=== PATIENT | male | born 1950 | race Caucasian/White ===

== ENCOUNTER 2016-06-20 13:37 | Inpatient (IN) | payer OTHER, BC ==
[~2016-06-20] VITALS: Ht 180.3 cm; Wt 158.4 kg
[~2016-06-20 13:37] MED LIST: BENADRYL25 MG PO; BUMEX2 MG PO; Bumex PO; COUMADIN10 MG PO; Calcium Carbonate,Ca PO; Claritin,Alavart PO; Coumadin dosing per PO; Duragesic TD; FLOMAX0.4 MG PO; FOSINOPRIL SODI10 MG PO; Feosol PO; LEVOTHYROXINE125 MCG PO; LEXAPRO10 MG PO; LOPRESSOR25 MG PO; Levothroid,Synthroid PO; Lipitor PO; METHOCARBAMOL500 MG PO; MICRO-K10 ME2 PO; Micro-K,K-Tab,K-Dur, PO; Monopril PO; NASONEX17 GM NS; NEURONTIN600 MG PO; Neurontin PO; PERCOCET 7.51 TABLET PO; POLYSPORIN LEFT EYE; Percocet 5/325,Endoc PO; Proventil,Ventolin H IH; Senokot S,Pericolace PO; THERAGRAN1 TABLET PO
[2016-06-20 14:37] LABS: POINT-OF-CARE METER ID UU13113778
[2016-06-20 15:44] LABS: EOSINOPHIL (%) 4.3 % (0-5); EOSINOPHIL COUNT 0.3 K/uL (0-0.3); HEMATOCRIT 35.7 % (38.0-50.0); IMMATURE GRANULOCYTE (%) 0.6 % (0.0-0.7); IMMATURE GRANULOCYTE COUNT 0.4 K/uL; LYMPHOCYTE COUNT 1.4 K/uL (1.0-2.8); MCH 29.8 PG (29.0-34.0); MCHC 32.8 G/DL (30.0-36.0); MCV 91.1 FL (86-99); MEAN PLAT.VOLUME 9.6 uM^3 (9.0-12.4); MONOCYTE (%) 10.3 % (3-12); MONOCYTE COUNT 0.7 K/uL (0-0.8); NEUTROPHIL (%) 64.6 % (45-76); NEUTROPHIL COUNT 4.5 K/uL (1.8-6.4); PLATELET COUNT 265 K/uL (156-360); RBC DIS.WIDTH-CV 14.9 % (11.8-14.6); RBC DIS.WIDTH-SD 48.8 % (39-53); RED BLOOD COUNT 3.92 M/uL (4.00-5.50)
[2016-06-20 15:52] LABS: CHLORIDE 101 mEq/L (99-109); POTASSIUM 3.8 mEq/L (3.7-5.4); SODIUM 138 mEq/L (136-147)
[2016-06-20 15:53] LABS: GLUCOSE 120 mg/dL (70-99)
[2016-06-20 15:55] LABS: ANION GAP 12 MEQ/L (2-14)
[2016-06-20 15:57] LABS: GFR ESTIMATE (CALCULATED) > 59 mL/min/
[2016-06-20 15:58] LABS: UREA NITROGEN (BUN) 13 mg/dL (9-23)
[2016-06-20] MEDS ORDERED: WARFARIN SODIUM5 MG PO ×2 (17:55→17:57)
[2016-06-20] MEDS ORDERED: LIPITOR20 MG PO (18:03)
[2016-06-20] MEDS ORDERED: LEXAPRO20 MG PO (18:03)
[2016-06-20] MEDS ORDERED: TRAMADOL HCL50 MG PO (18:04)
[2016-06-20] MEDS ORDERED: CYCLOBENZAPRINE10 MG PO (18:04)
[2016-06-20] MEDS ORDERED: DAILY VALUE1 EACH PO (18:05)
[2016-06-20] MEDS ORDERED: PLAQUENIL200 MG PO (18:05)
[2016-06-20] MEDS ORDERED: CIPRO500 MG PO (18:06)
[2016-06-20] MEDS ORDERED: SILVADENE,SSD,T50 GM TP (18:07)
[2016-06-20] MEDS ORDERED: CALCIUM 600 MG1 EACH PO (18:08)
[2016-06-20] MEDS ORDERED: CALCIUM 600 +1 EA16 PO (18:12)
[2016-06-20 20:24] VITALS: BP 131/72
[2016-06-20 20:34] VITALS: BP 131/72
[2016-06-20 20:50] LABS: POINT-OF-CARE METER ID UU13113717
[2016-06-20 23:24] LABS: INTER. NORMALIZED RATIO 2.4; PROTHROMBIN TIME 24.8 (9.2-11.2)
[2016-06-21 05:44] LABS: POINT-OF-CARE METER ID UU13113717
[2016-06-21 06:56] LABS: INTER. NORMALIZED RATIO 2.3; PROTHROMBIN TIME 23.5 (9.2-11.2)
[2016-06-21 08:31] VITALS: BP 149/86
[2016-06-21 11:41] LABS: POINT-OF-CARE METER ID UU13113717
[2016-06-21 16:28] LABS: POINT-OF-CARE METER ID UU13113717
[2016-06-21 17:55] VITALS: BP 125/74
[2016-06-22] VITALS: BP 114/71
[2016-06-22 06:48] LABS: INTER. NORMALIZED RATIO 2.2
[2016-06-22 07:01] LABS: HEMATOCRIT 32.5 % (38.0-50.0); MCH 29.4 PG (29.0-34.0); MCV 91.8 FL (86-99); MEAN PLAT.VOLUME 9.8 uM^3 (9.0-12.4); PLATELET COUNT 220 K/uL (156-360); RBC DIS.WIDTH-CV 15.1 % (11.8-14.6); RBC DIS.WIDTH-SD 51.6 % (39-53); RED BLOOD COUNT 3.54 M/uL (4.00-5.50)
[2016-06-22 07:02] LABS: WHITE BLOOD COUNT 4.7 K/uL (4.1-10.2)
[2016-06-22 07:13] LABS: ANION GAP 8 MEQ/L (2-14); CHLORIDE 105 MEQ/L (99-109); GFR ESTIMATE (CALCULATED) > 59 mL/min/; GLUCOSE 86 mg/dL (70-99); MAGNESIUM 1.7 mg/dl (1.3-2.7); POTASSIUM 3.9 MEQ/L (3.7-5.4); SAMPLE HEMOLYSIS CHECK 0; SAMPLE ICTERIC CHECK 0; SAMPLE LIPEMIA CHECK 0; SODIUM 140 MEQ/L (136-147); UREA NITROGEN (BUN) 11 mg/dL (9-23)
[2016-06-22 08:11] VITALS: BP 123/80
[2016-06-22 16:04] VITALS: BP 149/78
[2016-06-22 16:24] LABS: POINT-OF-CARE METER ID UU13113725
[2016-06-22 21:10] LABS: POINT-OF-CARE METER ID UU13113717
[2016-06-22 22:43] VITALS: BP 93/55
[2016-06-23 06:10] LABS: POINT-OF-CARE METER ID UU13113717
[2016-06-23 07:16] LABS: INTER. NORMALIZED RATIO 2.3; PROTHROMBIN TIME 23.5 (9.2-11.2)
[2016-06-23 08:20] VITALS: BP 141/64
[2016-06-23 11:24] LABS: POINT-OF-CARE METER ID UU13113717
[2016-06-23 16:33] LABS: POINT-OF-CARE METER ID UU13113725
[2016-06-23 16:42] VITALS: BP 116/70
[2016-06-23 20:56] LABS: POINT-OF-CARE METER ID UU13113725
[2016-06-23 22:53] VITALS: BP 152/70
[2016-06-24 06:00] LABS: POINT-OF-CARE METER ID UU13113725
[2016-06-24 07:37] LABS: INTER. NORMALIZED RATIO 2.4; PROTHROMBIN TIME 25.3 (9.2-11.2)
[2016-06-24 07:57] LABS: POINT-OF-CARE METER ID UU13113725
[2016-06-24 08:00] VITALS: BP 132/97
[2016-06-24 11:59] LABS: POINT-OF-CARE METER ID UU13113725
[2016-06-24 15:58] VITALS: BP 88/50
[2016-06-24 15:58] LABS: POINT-OF-CARE METER ID UU13113725
[2016-06-24 16:44] VITALS: BP 96/62
[2016-06-25] VITALS: BP 144/89
[2016-06-25 06:21] LABS: POINT-OF-CARE METER ID UU13113717
[2016-06-25 06:39] LABS: INTER. NORMALIZED RATIO 2.4; PROTHROMBIN TIME 24.9 (9.2-11.2)
[2016-06-25 08:16] VITALS: BP 135/80
[2016-06-25 10:32] LABS: POINT-OF-CARE METER ID UU13113717
[2016-06-25 11:05] LABS: POINT-OF-CARE METER ID UU13113717
[2016-06-25] MEDS ORDERED: BACTRIM,SEPT1 TABLET PO (11:37)
[2016-06-25] MEDS ORDERED: CEPHALEXIN500 MG PO (11:41)
== END 2016-06-25 13:41 | disposition home health service (06) | DRG 638 ==
LOC: EME 13:37 → EDOF 17:49 → 5EAST 17:49
PROVIDERS: Emergency Medicine; Internal Medicine
DX: E11.69 Type 2 diabetes mellitus with other specified complication (principal); L03.115 Cellulitis of right lower limb; E11.43 Type 2 diabetes mellitus with diabetic autonomic (poly)neuropathy; E11.621 Type 2 diabetes mellitus with foot ulcer; L97.519 Non-pressure chronic ulcer of other part of right foot with unspecified severity; E11.51 Type 2 diabetes mellitus with diabetic peripheral angiopathy without gangrene; E66.01 Morbid (severe) obesity due to excess calories; I48.2 Chronic atrial fibrillation; Z79.01 Long term (current) use of anticoagulants; Z68.42 Body mass index [BMI] 45.0-49.9, adult; I10 Essential (primary) hypertension; E78.5 Hyperlipidemia, unspecified; F33.40 Major depressive disorder, recurrent, in remission, unspecified; E03.9 Hypothyroidism, unspecified; D53.9 Nutritional anemia, unspecified; Z98.84 Bariatric surgery status; E11.610 Type 2 diabetes mellitus with diabetic neuropathic arthropathy; Z89.421 Acquired absence of other right toe(s); N40.0 Benign prostatic hyperplasia without lower urinary tract symptoms
CPT/HCPCS: 73590; 73630; 73720; 80048; 80202; 82948; 83605; 83735; 85025; 85027; 85610; 87040; 93971; 99281; 99284; J0696; J1815; J3370; J7030; J7040; J7050

== ENCOUNTER 2016-10-13 14:14 | Emergency (ER) | payer OTHER, BC ==
[~2016-10-13] VITALS: Ht 180.3 cm; Wt 151.8 kg
[~2016-10-13 14:14] MED LIST changes: +BACTRIM,SEPT1 TABLET PO; +CALCIUM 600 +1 EA16 PO; +CALCIUM 600 MG1 EACH PO; +CEPHALEXIN500 MG PO; +CIPRO500 MG PO; +CYCLOBENZAPRINE10 MG PO; +DAILY VALUE1 EACH PO; +LEXAPRO20 MG PO; +LIPITOR20 MG PO; +PLAQUENIL200 MG PO; +SILVADENE,SSD,T50 GM TP; +TRAMADOL HCL50 MG PO; +WARFARIN SODIUM10 MG PO; +WARFARIN SODIUM5 MG PO
[2016-10-13 15:02] LABS: EOSINOPHIL COUNT 0.4 K/uL (0-0.3); HEMATOCRIT 33.9 % (38.0-50.0); IMMATURE GRANULOCYTE (%) 0.4 % (0.0-0.7); LYMPHOCYTE COUNT 1.3 K/uL (1.0-2.8); MCH 27.8 PG (29.0-34.0); MCHC 31.6 G/DL (30.0-36.0); MCV 88.1 FL (86-99); MEAN PLAT.VOLUME 9.4 uM^3 (9.0-12.4); MONOCYTE (%) 14.3 % (3-12); MONOCYTE COUNT 0.8 K/uL (0-0.8); NEUTROPHIL (%) 54.3 % (45-76); PLATELET COUNT 312 K/uL (156-360); RBC DIS.WIDTH-CV 15.1 % (11.8-14.6); RBC DIS.WIDTH-SD 48.6 % (39-53); RED BLOOD COUNT 3.85 M/uL (4.00-5.50); WHITE BLOOD COUNT 5.5 K/uL (4.1-10.2)
[2016-10-13 15:16] LABS: CHLORIDE 104 mEq/L (99-109); POTASSIUM 4.5 mEq/L (3.7-5.4); SODIUM 138 mEq/L (136-147)
[2016-10-13 15:17] LABS: GLUCOSE 85 mg/dL (70-99)
[2016-10-13 15:19] LABS: ANION GAP 9 MEQ/L (2-14)
[2016-10-13 15:21] LABS: GFR ESTIMATE (CALCULATED) > 59 mL/min/
[2016-10-13 15:22] LABS: UREA NITROGEN (BUN) 8 mg/dL (9-23)
[2016-10-13 15:24] LABS: CREATINE KINASE 295 IU/L (1-294); TOTAL CK 295 IU/L (1-294)
[2016-10-13 15:31] LABS: CK-MB 2.3 ng/mL (0.0-4.9)
[2016-10-13 15:36] LABS: INTER. NORMALIZED RATIO 2.4; PROTHROMBIN TIME 24.6 (9.2-11.2)
[2016-10-13 16:23] LABS: TROP-I INTERPRETATION NEGATIVE; TROPONIN-I < 0.01 ng/mL (0.0-0.30)
[2016-10-13 17:22] VITALS: BP 112/80
[2016-10-19] MEDS ORDERED: PREDNISONE10 MG PO (11:00)
== END 2016-10-13 17:50 | disposition home or self-care (01) ==
LOC: EME 14:14
DX: R53.1 Weakness (principal); M86.9 Osteomyelitis, unspecified; I48.2 Chronic atrial fibrillation; E11.9 Type 2 diabetes mellitus without complications; Z79.01 Long term (current) use of anticoagulants; I10 Essential (primary) hypertension; Z88.0 Allergy status to penicillin; Z88.8 Allergy status to other drugs, medicaments and biological substances; Z87.891 Personal history of nicotine dependence
CPT/HCPCS: 80048; 82550; 82553; 83605; 84484; 85025; 85610; 85730; 93005; 99281; 99285

== ENCOUNTER → 2016-10-14 | Outpatient (CLI) | payer OTHER, BC ==
[~2016-10-14] MED LIST changes: +PREDNISONE10 MG PO
== END | disposition home or self-care (01) ==
LOC: PICC 10:30
DX: S91.301D Unspecified open wound, right foot, subsequent encounter (principal)
CPT/HCPCS: 71010; 76937

== ENCOUNTER 2017-08-31 15:34 | Inpatient (IN) | payer OTHER, BC ==
[~2017-08-31] VITALS: Ht 180.3 cm; Wt 148.0 kg
[~2017-08-31 15:34] MED LIST changes: -FOSINOPRIL SODI10 MG PO; +MONOPRIL10 MG PO
[2017-08-31 16:11] LABS: BASOPHIL (%) 0.1 % (0-1); EOSINOPHIL (%) 0.1 % (0-5); HEMATOCRIT 32.3 % (38.0-50.0); HEMOGLOBIN 9.9 G/DL (12.5-16.6); IMMATURE GRANULOCYTE (%) 0.8 % (0.0-0.7); LYMPHOCYTE (%) 6.8 % (15-42); MCH 26.5 PG (29.0-34.0); MCHC 30.7 G/DL (30.0-36.0); MCV 86.6 FL (86-99); MONOCYTE COUNT 0.9 K/uL (0-0.8); NEUTROPHIL (%) 86.2 % (45-76); NEUTROPHIL COUNT 12.6 K/uL (1.8-6.4); PLATELET COUNT 323 K/uL (156-360); RBC DIS.WIDTH-CV 18.8 % (11.8-14.6); RED BLOOD COUNT 3.73 M/uL (4.00-5.50); WHITE BLOOD COUNT 14.6 K/uL (4.1-10.2)
[2017-08-31 16:25] LABS: CHLORIDE 104 mEq/L (99-109); POTASSIUM 4.3 mEq/L (3.7-5.4); SODIUM 136 mEq/L (136-147)
[2017-08-31 16:26] LABS: GLUCOSE 102 mg/dL (70-99)
[2017-08-31 16:30] LABS: GFR ESTIMATE (CALCULATED) > 59 mL/min/ (58.99-99999)
[2017-08-31 16:31] LABS: UREA NITROGEN (BUN) 18 mg/dL (9-23)
[2017-08-31 18:14] LABS: PTT 82.2 SEC (25-37)
[2017-08-31 18:22] LABS: INTER. NORMALIZED RATIO 12.7
[2017-08-31] MEDS ORDERED: NEURONTIN600 MG PO (19:46)
[2017-08-31] MEDS ORDERED: UNITHROID125 MCG PO (19:46)
[2017-08-31] MEDS ORDERED: POTASSIUM CHLO10 ME4 PO (19:47)
[2017-08-31] MEDS ORDERED: JANTOVEN5 MG PO (19:48)
[2017-08-31] MEDS ORDERED: METOPROLOL TART25 MG PO (19:49)
[2017-08-31] MEDS ORDERED: BUMETANIDE2 MG PO (19:49)
[2017-08-31 19:51] LABS: C-REACTIVE PROTEIN 126.7 MG/L (0-10)
[2017-08-31] MEDS ORDERED: OXYCODONE HCL20 M1 PO (20:10)
[2017-08-31 21:55] VITALS: BP 131/75
[2017-08-31 23:27] VITALS: BP 110/62
[2017-09-01] VITALS (7 sets, daily range): BP systolic 79–124; BP diastolic 57–82
[2017-09-01 05:15] LABS: HEMATOCRIT 26.9 % (38.0-50.0); HEMOGLOBIN 8.2 G/DL (12.5-16.6); MCH 26.5 PG (29.0-34.0); MCHC 30.5 G/DL (30.0-36.0); MCV 87.1 FL (86-99); PLATELET COUNT 245 K/uL (156-360); RBC DIS.WIDTH-CV 18.9 % (11.8-14.6); RED BLOOD COUNT 3.09 M/uL (4.00-5.50)
[2017-09-01 05:31] LABS: INTER. NORMALIZED RATIO 13.1
[2017-09-01 05:45] LABS: CHLORIDE 106 MEQ/L (99-109); CREATININE 0.9 MG/DL (0.6-1.3); GFR ESTIMATE (CALCULATED) > 59 mL/min/ (58.99-99999); GLUCOSE 85 mg/dL (70-99); POTASSIUM 3.7 MEQ/L (3.7-5.4); SODIUM 138 MEQ/L (136-147); UREA NITROGEN (BUN) 17 mg/dL (9-23)
[2017-09-01 08:05] LABS: ALBUMIN 1.8 G/DL (3.2-4.8)
[2017-09-01 12:47] LABS: HEMOGLOBIN A1c (GLYCOHEMOGLOB) 5.3 % (Below 5.7)
[2017-09-01 16:55] LABS: INTER. NORMALIZED RATIO 10.7
[2017-09-02 00:23] LABS: APPEARANCE SL.HAZY ((CLEAR)); BILIRUBIN NEGATIVE; BLOOD LARGE; COLOR YELLOW ((YELLOW)); GLUCOSE (STRIP) NEGATIVE; KETONES NEGATIVE; LEUKOCYTES NEGATIVE; NITRITE NEGATIVE; PROTEIN (STRIP) NEGATIVE; SPECIFIC GRAVITY 1.015 (1.000-1.030); UROBILINOGEN 0.2 MG/DL (0.2-1.0)
[2017-09-02 00:34] LABS: BACTERIA RARE /HPF; EPITHELIAL CELLS RARE /HPF; MUCUS TRACE /LPF; RED BLOOD CELLS TNTC /HPF (0-5); UCUL ADDED? YES; WHITE BLOOD CELLS 0-5 /HPF (0-5)
[2017-09-02 05:04] LABS: BASOPHIL (%) 0.1 % (0-1); EOSINOPHIL (%) 2.2 % (0-5); EOSINOPHIL COUNT 0.2 K/uL (0-0.3); HEMATOCRIT 29.4 % (38.0-50.0); IMMATURE GRANULOCYTE (%) 0.6 % (0.0-0.7); LYMPHOCYTE (%) 17.5 % (15-42); LYMPHOCYTE COUNT 1.7 K/uL (1.0-2.8); MCH 26.9 PG (29.0-34.0); MCHC 30.6 G/DL (30.0-36.0); MCV 87.8 FL (86-99); MONOCYTE COUNT 1.4 K/uL (0-0.8); NEUTROPHIL (%) 65.6 % (45-76); NEUTROPHIL COUNT 6.4 K/uL (1.8-6.4); PLATELET COUNT 256 K/uL (156-360); RED BLOOD COUNT 3.35 M/uL (4.00-5.50); WHITE BLOOD COUNT 9.8 K/uL (4.1-10.2)
[2017-09-02 05:20] LABS: INTER. NORMALIZED RATIO 6.2
[2017-09-02 05:43] LABS: CHLORIDE 104 MEQ/L (99-109); GFR ESTIMATE (CALCULATED) > 59 mL/min/ (58.99-99999); GLUCOSE 104 mg/dL (70-99); MAGNESIUM 1.5 mg/dl (1.3-2.7); POTASSIUM 4.1 MEQ/L (3.7-5.4); SODIUM 136 MEQ/L (136-147); UREA NITROGEN (BUN) 18 mg/dL (9-23)
[2017-09-02 07:36] VITALS: BP 120/70
[2017-09-02 11:50] VITALS: BP 122/76
[2017-09-02 13:18] LABS: C DIFF TOXIN NEGATIVE (NEGATIVE)
[2017-09-02 15:20] VITALS: BP 125/75
[2017-09-03 00:12] VITALS: BP 117/83
[2017-09-03 04:56] LABS: BASOPHIL (%) 0 % (0-1); EOSINOPHIL (%) 2.3 % (0-5); EOSINOPHIL COUNT 0.2 K/uL (0-0.3); HEMATOCRIT 24.2 % (38.0-50.0); HEMOGLOBIN 7.6 G/DL (12.5-16.6); IMMATURE GRANULOCYTE (%) 0.5 % (0.0-0.7); LYMPHOCYTE COUNT 1.4 K/uL (1.0-2.8); MCH 27.2 PG (29.0-34.0); MCHC 31.4 G/DL (30.0-36.0); MCV 86.7 FL (86-99); MONOCYTE (%) 13.4 % (3-12); MONOCYTE COUNT 1.4 K/uL (0-0.8); NEUTROPHIL (%) 70.8 % (45-76); NEUTROPHIL COUNT 7.4 K/uL (1.8-6.4); PLATELET COUNT 232 K/uL (156-360); RBC DIS.WIDTH-CV 18.6 % (11.8-14.6); RBC DIS.WIDTH-SD 59.2 % (39-53); RED BLOOD COUNT 2.79 M/uL (4.00-5.50); WHITE BLOOD COUNT 10.5 K/uL (4.1-10.2)
[2017-09-03 06:00] LABS: CHLORIDE 105 MEQ/L (99-109); CREATININE 0.9 MG/DL (0.6-1.3); GFR ESTIMATE (CALCULATED) > 59 mL/min/ (58.99-99999); GLUCOSE 85 mg/dL (70-99); POTASSIUM 3.7 MEQ/L (3.7-5.4); SODIUM 135 MEQ/L (136-147); UREA NITROGEN (BUN) 15 mg/dL (9-23)
[2017-09-03 06:19] LABS: INTER. NORMALIZED RATIO 2.2
[2017-09-03 08:22] VITALS: BP 118/63
[2017-09-03 08:30] VITALS: BP 122/64
[2017-09-03 10:55] VITALS: BP 118/64
[2017-09-03 11:31] LABS: HEMOGLOBIN 8.3 G/DL (12.5-16.6); MCV 87.7 FL (86-99)
[2017-09-03 12:58] LABS: IMM.RETIC FRACTION 14.7 % (3-19); RETIC HGB EQUIVALENT 30.2 (28-36)
[2017-09-03 13:22] LABS: FERRITIN 84 NG/ML (22-322)
[2017-09-03 14:06] LABS: IRON 18 MCG/DL (35-150); TRANSFERRIN (TIBC) 104.2 mg/dL (215-380); TRANSFERRIN SATUR. 17 % (20-55)
[2017-09-03 15:55] VITALS: BP 108/79
[2017-09-03 16:27] LABS: LACTATE DEHYDROGENASE 332 IU/L (20-246)
[2017-09-03 17:53] LABS: FOLIC ACID (FOLATE) 22.2 NG/ML (5.0-22.0)
[2017-09-03 23:52] VITALS: BP 92/58
[2017-09-04 06:21] LABS: HEMATOCRIT 27.4 % (38.0-50.0); HEMOGLOBIN 8.3 G/DL (12.5-16.6); MCHC 30.3 G/DL (30.0-36.0); MCV 85.9 FL (86-99); PLATELET COUNT 260 K/uL (156-360); RBC DIS.WIDTH-CV 18.3 % (11.8-14.6); RBC DIS.WIDTH-SD 57.7 % (39-53); RED BLOOD COUNT 3.19 M/uL (4.00-5.50); WHITE BLOOD COUNT 12.6 K/uL (4.1-10.2)
[2017-09-04 06:44] LABS: CHLORIDE 103 MEQ/L (99-109); GFR ESTIMATE (CALCULATED) > 59 mL/min/ (58.99-99999); GLUCOSE 93 mg/dL (70-99); POTASSIUM 3.6 MEQ/L (3.7-5.4); SODIUM 135 MEQ/L (136-147); UREA NITROGEN (BUN) 17 mg/dL (9-23)
[2017-09-04 11:27] LABS: INTER. NORMALIZED RATIO 1.8
[2017-09-04 15:07] VITALS: BP 110/51
[2017-09-04 23:19] VITALS: BP 78/55
[2017-09-05] VITALS (7 sets, daily range): BP systolic 83–140; BP diastolic 58–88
[2017-09-05 06:03] LABS: BASOPHIL (%) 0.2 % (0-1); EOSINOPHIL (%) 2.2 % (0-5); EOSINOPHIL COUNT 0.3 K/uL (0-0.3); HEMATOCRIT 25.8 % (38.0-50.0); HEMOGLOBIN 7.9 G/DL (12.5-16.6); IMMATURE GRANULOCYTE (%) 0.7 % (0.0-0.7); LYMPHOCYTE (%) 13.3 % (15-42); LYMPHOCYTE COUNT 1.5 K/uL (1.0-2.8); MCH 26.1 PG (29.0-34.0); MCHC 30.6 G/DL (30.0-36.0); MCV 85.1 FL (86-99); MONOCYTE (%) 12.2 % (3-12); MONOCYTE COUNT 1.4 K/uL (0-0.8); NEUTROPHIL (%) 71.4 % (45-76); NEUTROPHIL COUNT 8.2 K/uL (1.8-6.4); PLATELET COUNT 278 K/uL (156-360); RBC DIS.WIDTH-CV 18.6 % (11.8-14.6); RBC DIS.WIDTH-SD 57.6 % (39-53); RED BLOOD COUNT 3.03 M/uL (4.00-5.50); WHITE BLOOD COUNT 11.4 K/uL (4.1-10.2)
[2017-09-05 06:10] LABS: INTER. NORMALIZED RATIO 1.7
[2017-09-05 06:27] LABS: CHLORIDE 106 MEQ/L (99-109); CREATININE 0.9 MG/DL (0.6-1.3); GFR ESTIMATE (CALCULATED) > 59 mL/min/ (58.99-99999); GLUCOSE 91 mg/dL (70-99); POTASSIUM 3.6 MEQ/L (3.7-5.4); SODIUM 135 MEQ/L (136-147); UREA NITROGEN (BUN) 17 mg/dL (9-23)
[2017-09-05 08:09] LABS: MAGNESIUM 1.4 mg/dl (1.3-2.7)
[2017-09-05 13:59] LABS: ALBUMIN 1.7 G/DL (3.2-4.8)
[2017-09-06 06:31] LABS: HEMATOCRIT 26.3 % (38.0-50.0); MCH 26.5 PG (29.0-34.0); MCHC 30.4 G/DL (30.0-36.0); MCV 87.1 FL (86-99); PLATELET COUNT 274 K/uL (156-360); RBC DIS.WIDTH-CV 18.7 % (11.8-14.6); RBC DIS.WIDTH-SD 58.8 % (39-53); RED BLOOD COUNT 3.02 M/uL (4.00-5.50); WHITE BLOOD COUNT 8.7 K/uL (4.1-10.2)
[2017-09-06 06:41] LABS: INTER. NORMALIZED RATIO 1.9
[2017-09-06 07:07] LABS: CHLORIDE 109 MEQ/L (99-109); CREATININE 0.9 MG/DL (0.6-1.3); GFR ESTIMATE (CALCULATED) > 59 mL/min/ (58.99-99999); GLUCOSE 84 mg/dL (70-99); SODIUM 139 MEQ/L (136-147); UREA NITROGEN (BUN) 15 mg/dL (9-23)
[2017-09-06 08:01] VITALS: BP 98/63
[2017-09-06 15:39] VITALS: BP 116/76
[2017-09-06 19:55] VITALS: BP 129/69
[2017-09-07] VITALS (7 sets, daily range): BP systolic 89–129; BP diastolic 55–85
[2017-09-07 07:51] LABS: INTER. NORMALIZED RATIO 2.4
[2017-09-07 11:50] LABS: STOOL OCCULT BLD 1ST SPECIMEN NEGATIVE
[2017-09-08 03:28] VITALS: BP 156/80
[2017-09-08 07:44] LABS: BASOPHIL (%) 0.4 % (0-1); EOSINOPHIL (%) 3.8 % (0-5); EOSINOPHIL COUNT 0.3 K/uL (0-0.3); HEMATOCRIT 25.7 % (38.0-50.0); HEMOGLOBIN 8.1 G/DL (12.5-16.6); LYMPHOCYTE (%) 18.8 % (15-42); LYMPHOCYTE COUNT 1.4 K/uL (1.0-2.8); MCH 27.4 PG (29.0-34.0); MCHC 31.5 G/DL (30.0-36.0); MCV 86.8 FL (86-99); MONOCYTE (%) 14.1 % (3-12); NEUTROPHIL (%) 61.9 % (45-76); NEUTROPHIL COUNT 4.6 K/uL (1.8-6.4); PLATELET COUNT 274 K/uL (156-360); RBC DIS.WIDTH-CV 19.1 % (11.8-14.6); RBC DIS.WIDTH-SD 60.2 % (39-53); RED BLOOD COUNT 2.96 M/uL (4.00-5.50); WHITE BLOOD COUNT 7.4 K/uL (4.1-10.2)
[2017-09-08 07:46] LABS: INTER. NORMALIZED RATIO 3.1
[2017-09-08 07:51] VITALS: BP 137/78
[2017-09-08 08:00] LABS: CHLORIDE 108 MEQ/L (99-109); POTASSIUM 3.4 MEQ/L (3.7-5.4); SODIUM 140 MEQ/L (136-147)
[2017-09-08 08:37] LABS: CREATININE 0.8 MG/DL (0.6-1.3); GFR ESTIMATE (CALCULATED) > 59 mL/min/ (58.99-99999); GLUCOSE 80 mg/dL (70-99); UREA NITROGEN (BUN) 12 mg/dL (9-23)
[2017-09-08 12:13] VITALS: BP 130/72
[2017-09-08 16:02] VITALS: BP 86/52
[2017-09-08 19:53] VITALS: BP 107/66
[2017-09-08 23:22] VITALS: BP 91/53
[2017-09-09 04:29] VITALS: BP 87/46
[2017-09-09 05:33] LABS: BASOPHIL (%) 0.4 % (0-1); EOSINOPHIL (%) 3.5 % (0-5); EOSINOPHIL COUNT 0.3 K/uL (0-0.3); HEMATOCRIT 24.7 % (38.0-50.0); HEMOGLOBIN 7.5 G/DL (12.5-16.6); IMMATURE GRANULOCYTE (%) 0.9 % (0.0-0.7); LYMPHOCYTE (%) 21.4 % (15-42); LYMPHOCYTE COUNT 1.6 K/uL (1.0-2.8); MCH 26.6 PG (29.0-34.0); MCHC 30.4 G/DL (30.0-36.0); MCV 87.6 FL (86-99); MONOCYTE (%) 14.7 % (3-12); MONOCYTE COUNT 1.1 K/uL (0-0.8); NEUTROPHIL (%) 59.1 % (45-76); NEUTROPHIL COUNT 4.5 K/uL (1.8-6.4); PLATELET COUNT 285 K/uL (156-360); RBC DIS.WIDTH-CV 19.2 % (11.8-14.6); RBC DIS.WIDTH-SD 60.8 % (39-53); RED BLOOD COUNT 2.82 M/uL (4.00-5.50); WHITE BLOOD COUNT 7.6 K/uL (4.1-10.2)
[2017-09-09 05:42] LABS: INTER. NORMALIZED RATIO 3.4
[2017-09-09 05:59] LABS: CHLORIDE 109 MEQ/L (99-109); CREATININE 0.9 MG/DL (0.6-1.3); GFR ESTIMATE (CALCULATED) > 59 mL/min/ (58.99-99999); GLUCOSE 82 mg/dL (70-99); POTASSIUM 3.5 MEQ/L (3.7-5.4); SODIUM 140 MEQ/L (136-147); UREA NITROGEN (BUN) 11 mg/dL (9-23)
[2017-09-09 07:48] VITALS: BP 110/60
[2017-09-09 09:35] LABS: MAGNESIUM 1.4 mg/dl (1.3-2.7)
[2017-09-09 11:29] VITALS: BP 130/72
[2017-09-09 20:00] VITALS: BP 114/61
[2017-09-09 23:37] VITALS: BP 119/86
[2017-09-10 03:54] VITALS: BP 103/67
[2017-09-10 06:15] LABS: BASOPHIL (%) 0.6 % (0-1); BASOPHIL COUNT 0.1 K/uL (0-0.1); EOSINOPHIL (%) 3.4 % (0-5); EOSINOPHIL COUNT 0.3 K/uL (0-0.3); HEMATOCRIT 26.2 % (38.0-50.0); HEMOGLOBIN 7.9 G/DL (12.5-16.6); IMM.RETIC FRACTION 32.4 % (3-19); LYMPHOCYTE (%) 23.5 % (15-42); LYMPHOCYTE COUNT 1.9 K/uL (1.0-2.8); MCH 26.2 PG (29.0-34.0); MCHC 30.2 G/DL (30.0-36.0); MONOCYTE (%) 13.3 % (3-12); MONOCYTE COUNT 1.1 K/uL (0-0.8); NEUTROPHIL (%) 58.2 % (45-76); NEUTROPHIL COUNT 4.8 K/uL (1.8-6.4); PLATELET COUNT 316 K/uL (156-360); RBC DIS.WIDTH-CV 19.1 % (11.8-14.6); RBC DIS.WIDTH-SD 60.1 % (39-53); RED BLOOD COUNT 3.01 M/uL (4.00-5.50); RETIC HGB EQUIVALENT 28.7 (28-36); WHITE BLOOD COUNT 8.2 K/uL (4.1-10.2)
[2017-09-10 06:20] LABS: ALBUMIN 1.7 G/DL (3.2-4.8); ALKALINE PHOSPHATASE 72 IU/L (3-129); ALT (GPT) 9 IU/L (3-49); AST (GOT) 8 IU/L (2-34); CHLORIDE 107 MEQ/L (99-109); CREATININE 0.9 MG/DL (0.6-1.3); GFR ESTIMATE (CALCULATED) > 59 mL/min/ (58.99-99999); GLUCOSE 83 mg/dL (70-99); POTASSIUM 3.4 MEQ/L (3.7-5.4); RETICULOCYTE COUNT 2.4 % (0.5-1.8); SODIUM 141 MEQ/L (136-147); TOTAL BILIRUBIN 0.2 MG/DL (0.0-1.0); TOTAL PROTEIN 4.3 G/DL (6.4-8.3); UREA NITROGEN (BUN) 11 mg/dL (9-23)
[2017-09-10 06:23] LABS: INTER. NORMALIZED RATIO 3.1
[2017-09-10 07:58] LABS: ERTH.SED.RATE 45 MM/HR (0-20)
[2017-09-10 08:23] VITALS: BP 120/66
[2017-09-10 12:03] VITALS: BP 97/49
[2017-09-10 16:24] VITALS: BP 105/62
[2017-09-10 18:55] VITALS: BP 105/59
[2017-09-11 01:08] VITALS: BP 115/60
[2017-09-11 04:21] VITALS: BP 96/53
[2017-09-11 06:19] LABS: INTER. NORMALIZED RATIO 3.3
[2017-09-11 06:23] LABS: BASOPHIL (%) 0.6 % (0-1); BASOPHIL COUNT 0.1 K/uL (0-0.1); EOSINOPHIL (%) 3.5 % (0-5); EOSINOPHIL COUNT 0.3 K/uL (0-0.3); HEMATOCRIT 28.5 % (38.0-50.0); HEMOGLOBIN 8.5 G/DL (12.5-16.6); IMMATURE GRANULOCYTE (%) 0.9 % (0.0-0.7); LYMPHOCYTE (%) 26.1 % (15-42); LYMPHOCYTE COUNT 2.3 K/uL (1.0-2.8); MCH 26.2 PG (29.0-34.0); MCHC 29.8 G/DL (30.0-36.0); MONOCYTE (%) 12.8 % (3-12); MONOCYTE COUNT 1.1 K/uL (0-0.8); NEUTROPHIL (%) 56.1 % (45-76); NEUTROPHIL COUNT 4.8 K/uL (1.8-6.4); PLATELET COUNT 332 K/uL (156-360); RBC DIS.WIDTH-CV 19.4 % (11.8-14.6); RBC DIS.WIDTH-SD 61.3 % (39-53); RED BLOOD COUNT 3.24 M/uL (4.00-5.50); WHITE BLOOD COUNT 8.6 K/uL (4.1-10.2)
[2017-09-11 06:48] LABS: ALBUMIN 1.8 G/DL (3.2-4.8); ALKALINE PHOSPHATASE 69 IU/L (3-129); ALT (GPT) 10 IU/L (3-49); AST (GOT) 10 IU/L (2-34); CHLORIDE 106 MEQ/L (99-109); CREATININE 0.9 MG/DL (0.6-1.3); GFR ESTIMATE (CALCULATED) > 59 mL/min/ (58.99-99999); GLUCOSE 82 mg/dL (70-99); POTASSIUM 3.5 MEQ/L (3.7-5.4); SODIUM 143 MEQ/L (136-147); TOTAL PROTEIN 4.4 G/DL (6.4-8.3); UREA NITROGEN (BUN) 11 mg/dL (9-23)
[2017-09-11 06:50] LABS: TOTAL BILIRUBIN 0.3 MG/DL (0.0-1.0)
[2017-09-11 08:19] VITALS: BP 110/50
[2017-09-11 12:04] VITALS: BP 91/53
[2017-09-11] MEDS ORDERED: METRONIDAZOLE500 MG PO (12:29)
[2017-09-11] MEDS ORDERED: COUMADIN1 MG PO (12:30)
[2017-09-11] MEDS ORDERED: DIGOXIN125 MCG PO (12:30)
[2017-09-11] MEDS ORDERED: LOPRESSOR50 MG PO (12:31)
[2017-09-11] MEDS ORDERED: BUMETANIDE1 MG PO (12:32)
[2017-09-11] MEDS ORDERED: CYANOCOBALAM1000 MCG PO (12:33)
[2017-09-11] MEDS ORDERED: CALCIUM 500 MG1 EACH PO (12:33)
[2017-09-11] MEDS ORDERED: Zeasorb Antifungal T TP (12:33)
[2017-09-11] MEDS ORDERED: OXYCODONE HCL5 MG PO (12:34)
[2017-09-11 14:55] VITALS: BP 132/67
[2017-09-11 14:59] LABS: MAGNESIUM 1.4 mg/dl (1.3-2.7)
== END 2017-09-11 16:49 | DRG 637 ==
LOC: EME 15:34 → 3EAST 20:14 → EDOF 20:14 → ENRESERV 20:15 → 3EAST 21:26
PROVIDERS: Hospitalist; Internal Medicine; Physician Assistant
DX: E11.621 Type 2 diabetes mellitus with foot ulcer (principal); L89.893 Pressure ulcer of other site, stage 3; I70.262 Atherosclerosis of native arteries of extremities with gangrene, left leg; E11.52 Type 2 diabetes mellitus with diabetic peripheral angiopathy with gangrene; D62 Acute posthemorrhagic anemia; L03.116 Cellulitis of left lower limb; Z68.42 Body mass index [BMI] 45.0-49.9, adult; L97.419 Non-pressure chronic ulcer of right heel and midfoot with unspecified severity; I42.9 Cardiomyopathy, unspecified; F33.9 Major depressive disorder, recurrent, unspecified; E66.01 Morbid (severe) obesity due to excess calories; Z96.653 Presence of artificial knee joint, bilateral; R79.1 Abnormal coagulation profile; T45.515A Adverse effect of anticoagulants, initial encounter; N40.0 Benign prostatic hyperplasia without lower urinary tract symptoms; E11.610 Type 2 diabetes mellitus with diabetic neuropathic arthropathy; I89.0 Lymphedema, not elsewhere classified; I87.2 Venous insufficiency (chronic) (peripheral); I70.244 Atherosclerosis of native arteries of left leg with ulceration of heel and midfoot; I48.2 Chronic atrial fibrillation; E87.6 Hypokalemia; E83.51 Hypocalcemia; E83.42 Hypomagnesemia; E11.628 Type 2 diabetes mellitus with other skin complications; E03.9 Hypothyroidism, unspecified; D63.8 Anemia in other chronic diseases classified elsewhere; E11.42 Type 2 diabetes mellitus with diabetic polyneuropathy; E11.622 Type 2 diabetes mellitus with other skin ulcer; I10 Essential (primary) hypertension; E87.70 Fluid overload, unspecified; L89.620 Pressure ulcer of left heel, unstageable; E88.09 Other disorders of plasma-protein metabolism, not elsewhere classified; Z98.84 Bariatric surgery status; Z89.422 Acquired absence of other left toe(s); Z87.891 Personal history of nicotine dependence; Z89.421 Acquired absence of other right toe(s); Z86.14 Personal history of Methicillin resistant Staphylococcus aureus infection; Z79.01 Long term (current) use of anticoagulants; Z88.0 Allergy status to penicillin; Z88.8 Allergy status to other drugs, medicaments and biological substances; Z99.3 Dependence on wheelchair; Z79.4 Long term (current) use of insulin; Z83.3 Family history of diabetes mellitus; Z82.49 Family history of ischemic heart disease and other diseases of the circulatory system; Z80.9 Family history of malignant neoplasm, unspecified
CPT/HCPCS: 73630; 73720; 80048; 80053; 80162; 80202; 81003; 82040; 82272; 82607; 82728; 82746; 82948; 83010 90; 83036; 83540; 83605; 83615; 83735; 84466; 85014; 85018; 85025; 85027; 85046; 85610; 85652; 85730; 86140; 86850; 86880; 86900; 86901; 87040; 87070; 87075; 87076; 87086; 87185; 87205; 87493; 93926; 97530 GP; 99281; 99284; A6260; J0744; J0881; J1160; J1756; J1815; J3370; J3475; J7030; J7040; J7050; Q0138

== ENCOUNTER 2017-10-04 18:54 | Inpatient (IN) | payer OTHER, BC ==
[~2017-10-04] VITALS: Ht 180.3 cm; Wt 144.8 kg
[~2017-10-04 18:54] MED LIST changes: +BUMETANIDE1 MG PO; +BUMETANIDE2 MG PO; +CALCIUM 500 MG1 EACH PO; +COUMADIN1 MG PO; +CYANOCOBALAM1000 MCG PO; +DIGOXIN125 MCG PO; +JANTOVEN5 MG PO; +LOPRESSOR50 MG PO; +METOPROLOL TART25 MG PO; +METRONIDAZOLE500 MG PO; +OXYCODONE HCL20 M1 PO; +OXYCODONE HCL5 MG PO; +POTASSIUM CHLO10 ME4 PO; +UNITHROID125 MCG PO; +Zeasorb Antifungal T TP
[2017-10-04 19:50] LABS: BASOPHIL (%) 0.4 % (0-1); BASOPHIL COUNT 0.1 K/uL (0-0.1); EOSINOPHIL (%) 2.5 % (0-5); EOSINOPHIL COUNT 0.3 K/uL (0-0.3); HEMATOCRIT 35.6 % (38.0-50.0); HEMOGLOBIN 11.3 G/DL (12.5-16.6); IMMATURE GRANULOCYTE (%) 0.5 % (0.0-0.7); LYMPHOCYTE (%) 18.7 % (15-42); LYMPHOCYTE COUNT 2.2 K/uL (1.0-2.8); MCH 28.8 PG (29.0-34.0); MCHC 31.7 G/DL (30.0-36.0); MCV 90.8 FL (86-99); MONOCYTE (%) 12.8 % (3-12); MONOCYTE COUNT 1.5 K/uL (0-0.8); NEUTROPHIL (%) 65.1 % (45-76); NEUTROPHIL COUNT 7.6 K/uL (1.8-6.4); PLATELET COUNT 322 K/uL (156-360); RBC DIS.WIDTH-CV 20.2 % (11.8-14.6); RBC DIS.WIDTH-SD 67.3 % (39-53); RED BLOOD COUNT 3.92 M/uL (4.00-5.50); WHITE BLOOD COUNT 11.6 K/uL (4.1-10.2)
[2017-10-04 19:58] LABS: ALBUMIN 1.7 g/dL (3.2-4.8)
[2017-10-04 19:59] LABS: CHLORIDE 95 mEq/L (99-109); POTASSIUM 3.4 mEq/L (3.7-5.4); SODIUM 136 mEq/L (136-147)
[2017-10-04 20:01] LABS: GLUCOSE 97 mg/dL (70-99); TOTAL PROTEIN 4.9 g/dL (6.4-8.3)
[2017-10-04 20:03] LABS: TOTAL BILIRUBIN 0.8 mg/dL (0.0-1.0)
[2017-10-04 20:04] LABS: ALKALINE PHOSPHATASE 126 IU/L (3-129)
[2017-10-04 20:05] LABS: CREATININE 0.8 mg/dL (0.6-1.3); GFR ESTIMATE (CALCULATED) > 59 mL/min/ (58.99-99999)
[2017-10-04 20:06] LABS: AST (GOT) 27 IU/L (2-34); UREA NITROGEN (BUN) 11 mg/dL (9-23)
[2017-10-04 20:08] LABS: ALT (GPT) 16 IU/L (3-49)
[2017-10-04 20:18] LABS: ERTH.SED.RATE 39 MM/HR (0-20)
[2017-10-04] MEDS ORDERED: LIPITOR20 MG PO (21:23)
[2017-10-04] MEDS ORDERED: BUMEX1 MG PO (21:24)
[2017-10-04] MEDS ORDERED: BUMEX2 MG PO (21:24)
[2017-10-04] MEDS ORDERED: COUMADIN3 MG PO (21:25)
[2017-10-04] MEDS ORDERED: B-121000 MC2 PO (21:25)
[2017-10-04] MEDS ORDERED: DIGOX250 MCG PO (21:26)
[2017-10-04] MEDS ORDERED: LEXAPRO20 MG PO (21:26)
[2017-10-04] MEDS ORDERED: MULTIVITAMIN1 EAC2 PO (21:26)
[2017-10-04] MEDS ORDERED: K-DUR20 MEQ PO (21:27)
[2017-10-04] MEDS ORDERED: LEVO-T125 MCG PO (21:27)
[2017-10-04] MEDS ORDERED: FLOMAX0.4 MG PO (21:28)
[2017-10-04] MEDS ORDERED: CALCIUM500 M4 PO (21:28)
[2017-10-04] MEDS ORDERED: TRAZODONE HCL50 MG PO (21:28)
[2017-10-04] MEDS ORDERED: LOPRESSOR25 MG PO (21:29)
[2017-10-04] MEDS ORDERED: NEURONTIN800 MG PO (21:30)
[2017-10-04] MEDS ORDERED: ZEASORB-AF70 G1 TP (21:30)
[2017-10-04] MEDS ORDERED: FLEXERIL10 MG PO (21:31)
[2017-10-04] MEDS ORDERED: TYLENOL REGULA325 MG PO (21:31)
[2017-10-04] MEDS ORDERED: DULCOLAX10 MG PR (21:32)
[2017-10-04] MEDS ORDERED: MILK OF MAGN PO (21:32)
[2017-10-04] MEDS ORDERED: MIRALAX17 GM PO (21:33)
[2017-10-04] MEDS ORDERED: ROXICODONE5 MG PO (21:34)
[2017-10-05] VITALS (7 sets, daily range): BP systolic 91–133; BP diastolic 42–79
[2017-10-05 03:45] LABS: BASOPHIL (%) 0.7 % (0-1); BASOPHIL COUNT 0.1 K/uL (0-0.1); EOSINOPHIL (%) 3.4 % (0-5); EOSINOPHIL COUNT 0.3 K/uL (0-0.3); HEMATOCRIT 33.7 % (38.0-50.0); HEMOGLOBIN 10.9 G/DL (12.5-16.6); IMMATURE GRANULOCYTE (%) 0.4 % (0.0-0.7); LYMPHOCYTE (%) 24.2 % (15-42); LYMPHOCYTE COUNT 2.2 K/uL (1.0-2.8); MCH 29.1 PG (29.0-34.0); MCHC 32.3 G/DL (30.0-36.0); MCV 90.1 FL (86-99); MONOCYTE COUNT 1.3 K/uL (0-0.8); NEUTROPHIL (%) 57.3 % (45-76); NEUTROPHIL COUNT 5.3 K/uL (1.8-6.4); PLATELET COUNT 300 K/uL (156-360); RBC DIS.WIDTH-SD 66.6 % (39-53); RED BLOOD COUNT 3.74 M/uL (4.00-5.50); WHITE BLOOD COUNT 9.2 K/uL (4.1-10.2)
[2017-10-05 03:52] LABS: INTER. NORMALIZED RATIO 2.9
[2017-10-05 03:54] LABS: CHLORIDE 96 mEq/L (99-109); POTASSIUM 3.1 mEq/L (3.7-5.4); SODIUM 137 mEq/L (136-147)
[2017-10-05 03:56] LABS: GLUCOSE 80 mg/dL (70-99)
[2017-10-05 04:00] LABS: CREATININE 0.8 mg/dL (0.6-1.3); GFR ESTIMATE (CALCULATED) > 59 mL/min/ (58.99-99999)
[2017-10-05 04:01] LABS: UREA NITROGEN (BUN) 12 mg/dL (9-23)
[2017-10-05 13:47] LABS: BASOPHIL (%) 0.7 % (0-1); EOSINOPHIL COUNT 0.2 K/uL (0-0.3); HEMATOCRIT 28.5 % (38.0-50.0); IMMATURE GRANULOCYTE (%) 0.7 % (0.0-0.7); LYMPHOCYTE (%) 18.6 % (15-42); LYMPHOCYTE COUNT 1.1 K/uL (1.0-2.8); MCH 28.9 PG (29.0-34.0); MCHC 31.6 G/DL (30.0-36.0); MCV 91.6 FL (86-99); MONOCYTE COUNT 0.7 K/uL (0-0.8); PLATELET COUNT 238 K/uL (156-360); RBC DIS.WIDTH-CV 20.3 % (11.8-14.6); RBC DIS.WIDTH-SD 68.2 % (39-53); RED BLOOD COUNT 3.11 M/uL (4.00-5.50); WHITE BLOOD COUNT 6.1 K/uL (4.1-10.2)
[2017-10-05 14:01] LABS: TROP-I INTERPRETATION NEGATIVE; TROPONIN-I 0.02 ng/mL (0.0-0.30)
[2017-10-06 04:00] VITALS: BP 94/52
[2017-10-06 06:40] LABS: BASOPHIL (%) 0.2 % (0-1); EOSINOPHIL (%) 3.1 % (0-5); EOSINOPHIL COUNT 0.3 K/uL (0-0.3); HEMATOCRIT 26.5 % (38.0-50.0); IMMATURE GRANULOCYTE (%) 0.6 % (0.0-0.7); LYMPHOCYTE (%) 5.3 % (15-42); LYMPHOCYTE COUNT 0.5 K/uL (1.0-2.8); MCH 28.4 PG (29.0-34.0); MCHC 30.2 G/DL (30.0-36.0); MONOCYTE (%) 3.6 % (3-12); MONOCYTE COUNT 0.3 K/uL (0-0.8); NEUTROPHIL (%) 87.2 % (45-76); NEUTROPHIL COUNT 8.1 K/uL (1.8-6.4); PLATELET COUNT 238 K/uL (156-360); RBC DIS.WIDTH-CV 20.6 % (11.8-14.6); RBC DIS.WIDTH-SD 70.9 % (39-53); RED BLOOD COUNT 2.82 M/uL (4.00-5.50); WHITE BLOOD COUNT 9.3 K/uL (4.1-10.2)
[2017-10-06 06:49] LABS: INTER. NORMALIZED RATIO 3.3
[2017-10-06 06:59] LABS: TROP-I INTERPRETATION NEGATIVE; TROPONIN-I 0.02 ng/mL (0.0-0.30)
[2017-10-06 07:06] LABS: CHLORIDE 101 MEQ/L (99-109); GFR ESTIMATE (CALCULATED) > 59 mL/min/ (58.99-99999); POTASSIUM 3.3 MEQ/L (3.7-5.4); SODIUM 138 MEQ/L (136-147); UREA NITROGEN (BUN) 14 mg/dL (9-23)
[2017-10-06 07:12] LABS: GLUCOSE 116 mg/dL (70-99)
[2017-10-06 07:51] VITALS: BP 109/62
[2017-10-06 12:21] VITALS: BP 112/64
[2017-10-06 15:23] VITALS: BP 108/64
[2017-10-06 19:27] VITALS: BP 115/58
[2017-10-06 23:49] VITALS: BP 103/43
[2017-10-07 03:37] VITALS: BP 93/49
[2017-10-07 04:00] VITALS: BP 100/56
[2017-10-07 07:11] LABS: INTER. NORMALIZED RATIO 2.7
[2017-10-07 07:59] VITALS: BP 107/61
[2017-10-07 08:30] LABS: HEMATOCRIT 34.2 % (38.0-50.0); HEMOGLOBIN 10.7 G/DL (12.5-16.6); MCH 29.2 PG (29.0-34.0); MCHC 31.3 G/DL (30.0-36.0); MCV 93.2 FL (86-99); PLATELET COUNT 284 K/uL (156-360); RBC DIS.WIDTH-CV 20.3 % (11.8-14.6); RBC DIS.WIDTH-SD 70.1 % (39-53); RED BLOOD COUNT 3.67 M/uL (4.00-5.50); WHITE BLOOD COUNT 14.3 K/uL (4.1-10.2)
[2017-10-07 09:04] LABS: CHLORIDE 100 MEQ/L (99-109); CREATININE 1.1 MG/DL (0.6-1.3); GFR ESTIMATE (CALCULATED) > 59 mL/min/ (58.99-99999); GLUCOSE 122 mg/dL (70-99); SODIUM 135 MEQ/L (136-147); UREA NITROGEN (BUN) 18 mg/dL (9-23)
[2017-10-07 09:05] LABS: POTASSIUM 4.1 MEQ/L (3.7-5.4)
[2017-10-07 12:06] VITALS: BP 110/60
[2017-10-07 17:52] VITALS: BP 97/65
[2017-10-07 20:01] VITALS: BP 116/52
[2017-10-08] VITALS (7 sets, daily range): BP systolic 91–117; BP diastolic 51–67
[2017-10-08 10:29] LABS: HEMATOCRIT 33.8 % (38.0-50.0); HEMOGLOBIN 10.4 G/DL (12.5-16.6); MCH 28.5 PG (29.0-34.0); MCHC 30.8 G/DL (30.0-36.0); MCV 92.6 FL (86-99); PLATELET COUNT 329 K/uL (156-360); RBC DIS.WIDTH-CV 20.1 % (11.8-14.6); RBC DIS.WIDTH-SD 68.5 % (39-53); RED BLOOD COUNT 3.65 M/uL (4.00-5.50); WHITE BLOOD COUNT 16.6 K/uL (4.1-10.2)
[2017-10-08 10:58] LABS: CHLORIDE 97 MEQ/L (99-109); CREATININE 1.4 MG/DL (0.6-1.3); GFR ESTIMATE (CALCULATED) 54 mL/min/ (58.99-99999); GLUCOSE 129 mg/dL (70-99); POTASSIUM 4.4 MEQ/L (3.7-5.4); SODIUM 131 MEQ/L (136-147); UREA NITROGEN (BUN) 26 mg/dL (9-23)
[2017-10-09 03:45] VITALS: BP 102/69
[2017-10-09 06:46] LABS: INTER. NORMALIZED RATIO 2.9
[2017-10-09 07:06] LABS: CREATININE 1.3 MG/DL (0.6-1.3); GFR ESTIMATE (CALCULATED) 59 mL/min/ (58.99-99999)
[2017-10-09 07:30] VITALS: BP 96/63
[2017-10-09 09:56] LABS: BASOPHIL (%) 0.4 % (0-1); BASOPHIL COUNT 0.1 K/uL (0-0.1); EOSINOPHIL (%) 8.1 % (0-5); EOSINOPHIL COUNT 1.1 K/uL (0-0.3); HEMATOCRIT 28.9 % (38.0-50.0); HEMOGLOBIN 8.9 G/DL (12.5-16.6); IMMATURE GRANULOCYTE (%) 0.6 % (0.0-0.7); LYMPHOCYTE (%) 11.6 % (15-42); LYMPHOCYTE COUNT 1.6 K/uL (1.0-2.8); MCH 28.3 PG (29.0-34.0); MCHC 30.8 G/DL (30.0-36.0); MCV 91.7 FL (86-99); MONOCYTE (%) 11.6 % (3-12); MONOCYTE COUNT 1.6 K/uL (0-0.8); NEUTROPHIL (%) 67.7 % (45-76); NEUTROPHIL COUNT 9.1 K/uL (1.8-6.4); PLATELET COUNT 335 K/uL (156-360); RBC DIS.WIDTH-CV 19.6 % (11.8-14.6); RED BLOOD COUNT 3.15 M/uL (4.00-5.50); WHITE BLOOD COUNT 13.5 K/uL (4.1-10.2)
[2017-10-09 10:24] LABS: CHLORIDE 97 MEQ/L (99-109); GLUCOSE 84 mg/dL (70-99); MAGNESIUM 1.5 mg/dl (1.3-2.7); POTASSIUM 4.2 MEQ/L (3.7-5.4); SODIUM 131 MEQ/L (136-147); UREA NITROGEN (BUN) 26 mg/dL (9-23)
[2017-10-09 11:52] VITALS: BP 109/57
[2017-10-09 16:00] VITALS: BP 101/52
[2017-10-09 18:22] LABS: APPEARANCE CLEAR ((CLEAR)); BILIRUBIN NEGATIVE; BLOOD MODERATE; COLOR STRAW ((YELLOW)); GLUCOSE (STRIP) NEGATIVE; KETONES NEGATIVE; LEUKOCYTES NEGATIVE; NITRITE NEGATIVE; PROTEIN (STRIP) NEGATIVE; SPECIFIC GRAVITY 1.006 (1.000-1.030); UROBILINOGEN 0.2 MG/DL (0.2-1.0)
[2017-10-09 18:52] LABS: BACTERIA NONE SEEN /HPF; CALCIUM OXALATE CRYSTALS RARE /HPF; EPITHELIAL CELLS NONE SEEN /HPF; HYALINE CASTS 0-5 /LPF; MUCUS TRACE /LPF; RED BLOOD CELLS 0-5 /HPF (0-5); UCUL ADDED? NO; WHITE BLOOD CELLS 0-5 /HPF (0-5)
[2017-10-09 19:28] VITALS: BP 101/54
[2017-10-09 23:16] VITALS: BP 99/54
[2017-10-10] VITALS (7 sets, daily range): BP systolic 88–117; BP diastolic 43–65
[2017-10-10 06:19] LABS: BASOPHIL (%) 0.5 % (0-1); BASOPHIL COUNT 0.1 K/uL (0-0.1); EOSINOPHIL (%) 6.7 % (0-5); EOSINOPHIL COUNT 0.7 K/uL (0-0.3); HEMATOCRIT 30.1 % (38.0-50.0); HEMOGLOBIN 9.3 G/DL (12.5-16.6); IMMATURE GRANULOCYTE (%) 0.7 % (0.0-0.7); LYMPHOCYTE (%) 14.8 % (15-42); LYMPHOCYTE COUNT 1.6 K/uL (1.0-2.8); MCH 28.4 PG (29.0-34.0); MCHC 30.9 G/DL (30.0-36.0); MONOCYTE (%) 12.4 % (3-12); MONOCYTE COUNT 1.4 K/uL (0-0.8); NEUTROPHIL (%) 64.9 % (45-76); NEUTROPHIL COUNT 7.1 K/uL (1.8-6.4); PLATELET COUNT 321 K/uL (156-360); RBC DIS.WIDTH-CV 19.8 % (11.8-14.6); RBC DIS.WIDTH-SD 67.4 % (39-53); RED BLOOD COUNT 3.27 M/uL (4.00-5.50); WHITE BLOOD COUNT 10.9 K/uL (4.1-10.2)
[2017-10-10 06:27] LABS: INTER. NORMALIZED RATIO 2.8
[2017-10-10 06:46] LABS: CHLORIDE 98 MEQ/L (99-109); CREATININE 1.2 MG/DL (0.6-1.3); GFR ESTIMATE (CALCULATED) > 59 mL/min/ (58.99-99999); GLUCOSE 103 mg/dL (70-99); MAGNESIUM 1.7 mg/dl (1.3-2.7); POTASSIUM 4.4 MEQ/L (3.7-5.4); SODIUM 135 MEQ/L (136-147); UREA NITROGEN (BUN) 27 mg/dL (9-23)
[2017-10-11 06:58] LABS: INTER. NORMALIZED RATIO 2.7
[2017-10-11 07:33] VITALS: BP 101/66
[2017-10-11 09:13] LABS: HEMATOCRIT 28.9 % (38.0-50.0); HEMOGLOBIN 8.9 G/DL (12.5-16.6); MCH 28.7 PG (29.0-34.0); MCHC 30.8 G/DL (30.0-36.0); MCV 93.2 FL (86-99); PLATELET COUNT 326 K/uL (156-360); RBC DIS.WIDTH-CV 19.8 % (11.8-14.6); RBC DIS.WIDTH-SD 67.2 % (39-53); WHITE BLOOD COUNT 9.1 K/uL (4.1-10.2)
[2017-10-11 11:54] VITALS: BP 110/62
[2017-10-11 13:08] LABS: CHLORIDE 97 MEQ/L (99-109); CREATININE 1.2 MG/DL (0.6-1.3); GFR ESTIMATE (CALCULATED) > 59 mL/min/ (58.99-99999); GLUCOSE 79 mg/dL (70-99); POTASSIUM 4.7 MEQ/L (3.7-5.4); SODIUM 134 MEQ/L (136-147); UREA NITROGEN (BUN) 23 mg/dL (9-23)
[2017-10-11 15:21] VITALS: BP 112/57
[2017-10-11 20:01] VITALS: BP 92/50
[2017-10-12] VITALS (8 sets, daily range): BP systolic 84–114; BP diastolic 47–69
[2017-10-12 06:19] LABS: BASOPHIL (%) 0.7 % (0-1); BASOPHIL COUNT 0.1 K/uL (0-0.1); EOSINOPHIL (%) 8.3 % (0-5); EOSINOPHIL COUNT 0.7 K/uL (0-0.3); HEMATOCRIT 25.5 % (38.0-50.0); HEMOGLOBIN 8.1 G/DL (12.5-16.6); IMMATURE GRANULOCYTE (%) 0.7 % (0.0-0.7); LYMPHOCYTE (%) 25.7 % (15-42); LYMPHOCYTE COUNT 2.1 K/uL (1.0-2.8); MCH 29.1 PG (29.0-34.0); MCHC 31.8 G/DL (30.0-36.0); MCV 91.7 FL (86-99); MONOCYTE (%) 13.4 % (3-12); MONOCYTE COUNT 1.1 K/uL (0-0.8); NEUTROPHIL (%) 51.2 % (45-76); NEUTROPHIL COUNT 4.3 K/uL (1.8-6.4); PLATELET COUNT 286 K/uL (156-360); RBC DIS.WIDTH-CV 19.4 % (11.8-14.6); RBC DIS.WIDTH-SD 65.4 % (39-53); RED BLOOD COUNT 2.78 M/uL (4.00-5.50); WHITE BLOOD COUNT 8.3 K/uL (4.1-10.2)
[2017-10-12 06:30] LABS: INTER. NORMALIZED RATIO 2.1
[2017-10-12 06:49] LABS: CHLORIDE 101 MEQ/L (99-109); GFR ESTIMATE (CALCULATED) > 59 mL/min/ (58.99-99999); GLUCOSE 83 mg/dL (70-99); POTASSIUM 3.9 MEQ/L (3.7-5.4); SODIUM 138 MEQ/L (136-147); UREA NITROGEN (BUN) 21 mg/dL (9-23)
[2017-10-12 12:33] LABS: HEMOGLOBIN 7.8 G/DL (12.5-16.6); MCV 91.9 FL (86-99)
[2017-10-12 12:59] LABS: RETIC HGB EQUIVALENT 34.2 (28-36); RETICULOCYTE COUNT 2.2 % (0.5-1.8)
[2017-10-12 13:41] LABS: TOTAL BILIRUBIN 0.4 MG/DL (0.0-1.0)
[2017-10-12 16:03] LABS: HEMATOCRIT 25.8 % (38.0-50.0); HEMOGLOBIN 8.1 G/DL (12.5-16.6); MCV 91.8 FL (86-99)
[2017-10-13 00:06] VITALS: BP 88/51
[2017-10-13 03:50] VITALS: BP 104/62
[2017-10-13 06:37] LABS: HEMATOCRIT 28.1 % (38.0-50.0); HEMOGLOBIN 8.8 G/DL (12.5-16.6); MCHC 31.3 G/DL (30.0-36.0); MCV 92.7 FL (86-99); PLATELET COUNT 354 K/uL (156-360); RBC DIS.WIDTH-CV 19.7 % (11.8-14.6); RBC DIS.WIDTH-SD 66.7 % (39-53); RED BLOOD COUNT 3.03 M/uL (4.00-5.50); WHITE BLOOD COUNT 9.5 K/uL (4.1-10.2)
[2017-10-13 07:02] LABS: INTER. NORMALIZED RATIO 1.8
[2017-10-13 07:46] VITALS: BP 144/74
[2017-10-13 07:48] LABS: CHLORIDE 99 MEQ/L (99-109); CREATININE 0.9 MG/DL (0.6-1.3); GFR ESTIMATE (CALCULATED) > 59 mL/min/ (58.99-99999); GLUCOSE 74 mg/dL (70-99); POTASSIUM 4.2 MEQ/L (3.7-5.4); SODIUM 137 MEQ/L (136-147); UREA NITROGEN (BUN) 20 mg/dL (9-23)
[2017-10-13] MEDS ORDERED: OXYCODONE HCL15 MG PO (09:35)
[2017-10-13 12:18] VITALS: BP 120/62
== END 2017-10-13 16:33 | DRG 240 ==
LOC: EME 18:54 → 5SOUTH 22:11 → EDOF 22:11 → ENRESERV 22:12 → 5SOUTH 10-05 00:35 → ENPENDDIS 10-13 14:22 → 5SOUTH 10-13 16:33
PROVIDERS: Emergency Medicine Emergency Medical Services; Hospitalist; Physician Assistant; Physician Assistant Medical; Surgery
PROC: 0Y6D0Z3 Detachment at Left Upper Leg, Low, Open Approach (ICD-10-PCS; principal; 2017-10-05)
DX: E11.52 Type 2 diabetes mellitus with diabetic peripheral angiopathy with gangrene (principal); M86.10 Other acute osteomyelitis, unspecified site; L03.116 Cellulitis of left lower limb; L03.311 Cellulitis of abdominal wall; L89.312 Pressure ulcer of right buttock, stage 2; L89.321 Pressure ulcer of left buttock, stage 1; E11.42 Type 2 diabetes mellitus with diabetic polyneuropathy; L97.429 Non-pressure chronic ulcer of left heel and midfoot with unspecified severity; I48.2 Chronic atrial fibrillation; Z68.41 Body mass index [BMI] 40.0-44.9, adult; E46 Unspecified protein-calorie malnutrition; E66.01 Morbid (severe) obesity due to excess calories; I11.0 Hypertensive heart disease with heart failure; E03.9 Hypothyroidism, unspecified; I87.8 Other specified disorders of veins; I87.2 Venous insufficiency (chronic) (peripheral); F41.9 Anxiety disorder, unspecified; D63.8 Anemia in other chronic diseases classified elsewhere; E78.5 Hyperlipidemia, unspecified; E87.6 Hypokalemia; R09.02 Hypoxemia; M33.20 Polymyositis, organ involvement unspecified; G89.4 Chronic pain syndrome; E11.622 Type 2 diabetes mellitus with other skin ulcer; E11.621 Type 2 diabetes mellitus with foot ulcer; L97.519 Non-pressure chronic ulcer of other part of right foot with unspecified severity; E11.69 Type 2 diabetes mellitus with other specified complication; E11.628 Type 2 diabetes mellitus with other skin complications; E11.610 Type 2 diabetes mellitus with diabetic neuropathic arthropathy; L97.229 Non-pressure chronic ulcer of left calf with unspecified severity; A49.02 Methicillin resistant Staphylococcus aureus infection, unspecified site; L97.529 Non-pressure chronic ulcer of other part of left foot with unspecified severity; Z80.0 Family history of malignant neoplasm of digestive organs; N40.0 Benign prostatic hyperplasia without lower urinary tract symptoms; F32.9 Major depressive disorder, single episode, unspecified; Z96.653 Presence of artificial knee joint, bilateral; Z89.421 Acquired absence of other right toe(s); Z87.891 Personal history of nicotine dependence; Z98.84 Bariatric surgery status; Z79.01 Long term (current) use of anticoagulants; Z83.3 Family history of diabetes mellitus; Z82.49 Family history of ischemic heart disease and other diseases of the circulatory system; I50.9 Heart failure, unspecified; I77.1 Stricture of artery; K59.00 Constipation, unspecified; N50.89 Other specified disorders of the male genital organs; R32 Unspecified urinary incontinence
CPT/HCPCS: 36600; 71045; 80048; 80053; 80162; 81003; 82247; 82272; 82565; 82803; 82948; 83605; 83735; 84484; 85014; 85018; 85025; 85025 91; 85027; 85046; 85610; 85651; 86850; 86900; 86901; 86920; 87040; 87070; 87075; 87077; 87147; 87186; 87205; 88307; 93005; 93306; 94640; 94799; 97530 GP; 99202; 99281; 99284; A6214; A6260; J0131; J0690; J0692; J0881; J1170; J1885; J1940; J2543; J2550; J3010; J3370; J3475; J3480; J7050